=== PATIENT | female | born 1990 | race African-American/Black ===

== ENCOUNTER 2020-05-14 09:12 | Emergency (ER) | payer OTHER ==
[~2020-05-14] VITALS: Ht 167.6 cm; Wt 64.0 kg
[2020-05-14] MEDS ORDERED: MORPHINE SULFATE 10 MG/ML CPJ IM NR (11:00)
[2020-05-14 11:15] VITALS: BP 126/79
== END 2020-05-14 11:43 | disposition home or self-care (01) ==
LOC: ER 09:32
DX: S43.015A Anterior dislocation of left humerus, initial encounter (principal); X58.XXXA Exposure to other specified factors, initial encounter; Y93.9 Activity, unspecified; Y92.013 Bedroom of single-family (private) house as the place of occurrence of the external cause
CPT/HCPCS: 73030; 93005; 96372; 99283; J2270